=== PATIENT | male | born 2005 | race Caucasian/White ===

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

== ENCOUNTER 2025-05-16 20:35 | Emergency (ER) | payer OTHER ==
[2025-05-16] MEDS ORDERED: LORazepam 2 MG/ML SDV ONE (20:39)
[2025-05-16] MEDS ORDERED: diphenhydrAMINE 50 MG/ML SDV ONE (20:40)
[2025-05-16] MEDS ORDERED: LORazepam 2 MG/ML SDV IM PRN (20:40)
[2025-05-16] MEDS: LORazepam 2 MG/ML SDV IVPUSH ONE (20:45)
[2025-05-16] MEDS: diphenhydrAMINE 50 MG/ML SDV IM ONE (20:45)
[2025-05-16 21:16] LABS: MEAN PLATELET VOLUME 8.4 fL (6.7-11.0); PLATELET COUNT,PLT 388 x10(3)uL (117-477); RED BLOOD CELL COUNT 5.07 x10(6)uL (3.90-5.90); RED CELL DISTRIBUTION WIDTH 13.3 % (12.4-15.0); WHITE BLOOD CELL COUNT,WBC 20.0 x10-3/uL (3.2-10.1)
[2025-05-16 21:18] LABS: BLOOD UREA NITROGEN,BUN 17 mg/dL (7-18); CARBON DIOXIDE,CO2 17 mmol/L (21-32); CHLORIDE,CL 98 mmol/L (100-110); CREATININE 1.3 mg/dL (0.70-1.30); ESTIMATED GFR 80 mL/min (>60); GLUCOSE RANDOM 125 mg/dL (80-116); POTASSIUM,K 4.2 mmol/L (3.5-5.3); SODIUM,NA 136 mmol/L (135-145)
[2025-05-16 21:29] LABS: A/G RATIO 1.4; ALANINE AMINOTRANSFERASE,ALT 33 U/L (12-36); BILIRUBIN TOTAL 0.4 mg/dL (0.1-1.3); PROTEIN TOTAL,TP 8.5 g/dL (6.0-8.0)
[2025-05-16 21:30] LABS: ASPARTATE AMNIOTRANSFERASE,AST 30 IU/L (5-25)
[2025-05-16 21:32] LABS: BAND PERCENT MAN 2 % (0-6); LYMPHOCYTES PERCENT MAN 13 % (13-37); MONOCYTES PERCENT MAN 5 % (4-12); SEG NEUTROPHILS PERCENT MAN 80 % (46-82)
== END 2025-05-16 21:15 ==
LOC: FB.ED 20:35
DX: T50.904A Poisoning by unspecified drugs, medicaments and biological substances, undetermined, initial encounter (principal); Z79.899 Other long term (current) drug therapy
CPT/HCPCS: 80053; 80307; 85025; 96372; 96374; 99285; J1200; J1630; J2060

== ENCOUNTER 2025-10-16 12:07 | Emergency (ER) | payer OTHER ==
[2025-10-16] MEDS ORDERED: Sodium Chloride 0.9% 10 ML Syringe FLUSH PRN (12:27)
[2025-10-16] MEDS: Ondansetron 4 MG/2 ML SDV IVPUSH ONE (12:37)
[2025-10-16 12:55] LABS: MEAN PLATELET VOLUME 7.4 fL (6.7-11.0); PLATELET COUNT,PLT 309 x10(3)uL (117-477); RED BLOOD CELL COUNT 4.61 x10(6)uL (3.90-5.90); RED CELL DISTRIBUTION WIDTH 14.1 % (12.4-15.0); WHITE BLOOD CELL COUNT,WBC 12.7 x10-3/uL (3.2-10.1)
[2025-10-16 12:57] LABS: BLOOD UREA NITROGEN,BUN 19 mg/dL (7-18); CARBON DIOXIDE,CO2 23 mmol/L (21-32); CHLORIDE,CL 104 mmol/L (100-110); CREATININE 0.8 mg/dL (0.70-1.30); EST CRCL DRUG DOSING (CG) 146.06 mL/min; ESTIMATED GFR 129 mL/min (>60); GLUCOSE RANDOM 145 mg/dL (80-116); POTASSIUM,K 4.4 mmol/L (3.5-5.3); SODIUM,NA 142 mmol/L (135-145)
[2025-10-16 13:03] LABS: A/G RATIO 1.4; ALANINE AMINOTRANSFERASE,ALT 25 U/L (12-36); ASPARTATE AMNIOTRANSFERASE,AST 13 IU/L (5-25); BILIRUBIN TOTAL 0.3 mg/dL (0.1-1.3); PROTEIN TOTAL,TP 7.5 g/dL (6.0-8.0)
[2025-10-16] MEDS: Ketorolac 30 MG/ML SDV IVPUSH ONE (13:09)
[2025-10-16 13:10] LABS: LACTIC ACID 2.2 mmol/L (0.4-2.0)
[2025-10-16] MEDS: LORazepam 2 MG/ML SDV IVPUSH ONE (13:10)
[2025-10-16 13:14] LABS: BAND PERCENT MAN 2 % (0-6); LYMPHOCYTES PERCENT MAN 6 % (13-37); MONOCYTES PERCENT MAN 5 % (4-12); SEG NEUTROPHILS PERCENT MAN 87 % (46-82)
== END 2025-10-16 16:20 | disposition home or self-care (01) ==
LOC: FB.ED 12:07
DX: K29.70 Gastritis, unspecified, without bleeding (principal); E86.0 Dehydration; Z87.891 Personal history of nicotine dependence
CPT/HCPCS: 36415; 80053; 80307; 83605; 85025; 86140; 87428; 96361; 96374; 96375; 99284; J1885; J2060; J2405; J2470; J7030